=== PATIENT | female | born 1990 | race Caucasian/White ===

== ENCOUNTER 2020-07-26 17:35 | Emergency (ER) | payer OTHER ==
[~2020-07-26] VITALS: Ht 152.4 cm; Wt 53.5 kg
[2020-07-27] MEDS ORDERED: PHENERGAN25 MG PO (01:44)
[2020-07-27] MEDS ORDERED: PEPCID40 MG PO (01:44)
== END 2020-07-27 02:05 | disposition home or self-care (01) ==
LOC: ER 17:35
DX: O21.8 Other vomiting complicating pregnancy (principal); Z3A.01 Less than 8 weeks gestation of pregnancy

== ENCOUNTER 2020-08-07 13:34 | Emergency (ER) | payer OTHER ==
[~2020-08-07] VITALS: Ht 152.4 cm; Wt 54.0 kg
[~2020-08-07 13:34] MED LIST: PEPCID40 MG PO; PHENERGAN25 MG PO
[2020-08-07] MEDS ORDERED: PANTOPRAZOLE SO40 MG PO (13:56)
[2020-08-07] MEDS ORDERED: PROTONIX20 MG (13:57)
[2020-08-08] MEDS ORDERED: PEPCID AC10 MG (21:25)
== END 2020-08-07 19:26 | disposition home or self-care (01) ==
LOC: ER 13:34
DX: O21.1 Hyperemesis gravidarum with metabolic disturbance (principal); O26.891 Other specified pregnancy related conditions, first trimester; K29.60 Other gastritis without bleeding; R10.13 Epigastric pain; Z3A.08 8 weeks gestation of pregnancy; Z03.818 Encounter for observation for suspected exposure to other biological agents ruled out

== ENCOUNTER 2020-08-08 21:11 | Emergency (ER) | payer OTHER ==
[~2020-08-08] VITALS: Ht 152.4 cm; Wt 53.5 kg
[~2020-08-08 21:11] MED LIST changes: +PANTOPRAZOLE SO40 MG PO; +PROTONIX20 MG
[2020-08-08] MEDS ORDERED: PEPCID AC10 MG (21:25)
== END 2020-08-09 03:58 | disposition home or self-care (01) ==
LOC: ER 21:11
DX: O21.0 Mild hyperemesis gravidarum (principal); Z3A.01 Less than 8 weeks gestation of pregnancy